=== PATIENT | female | born 1990 | race African-American/Black ===

== ENCOUNTER 2019-04-28 12:38 | Emergency (ER) | payer OTHER ==
[2019-04-28] MEDS ORDERED: Iopamidol 370 76% 100 ML VIAL ONE (13:35)
[2019-04-28 14:34] LABS: #Basophils 0.1 thou/uL (0.0-0.2); #Eosinphils 0.1 thou/uL (0.0-0.7); #Lymphocytes 3.3 thou/uL (1.20-3.40); #Monocytes 0.5 thou/uL (0.11-0.59); #Neutrophils 6.4 thou/uL (1.40-6.50); %Basophils 0.9 % (0.0-1.0); %Eosinophils 0.6 % (0.0-10.0); %Lymphocytes 31.4 % (21.0-51.0); %Monocytes 4.9 % (0.0-10.0); %Neutrophils 62.2 % (42.0-75.0); Hemoglobin 12.9 g/dL (12.0-16.0); Mean Corpuscular HGB CONC 33.3 g/dL (32.0-36.0); Mean Corpuscular Hemoglobin 28.4 pg (27.0-31.0); Mean Corpuscular Volume 85.2 fL (78.0-98.0); Mean Platelet Volume 6.7 fL (7.4-10.4); Platelet Count 377 thou/uL (130-400); RBC Distribution Width 12.9 % (11.5-14.5); Red Blood Cell (RBC) Count 4.53 mill/uL (4.20-5.40); White Blood Cell (WBC) Count 10.3 thou/uL (4.8-10.8)
[2019-04-28 14:56] LABS: ALT (SGPT) 45 U/L (8-55); AST (SGOT) 34 U/L (5-34); Albumin 4.2 g/dL (3.5-5.0); Alkaline Phosphatase 86 U/L (40-110); Anion Gap 14 mmol/L (10-20); BUN (Urea Nitrogen) 8 mg/dL (7.0-18.7); Bilirubin, Total 0.4 mg/dL (0.2-1.2); Calc. Creatinine Clearance 0 mL/min (70-130); Calcium 9.6 mg/dL (7.8-10.44); Carbon Dioxide 25 mmol/L (22-29); Chloride 103 mmol/L (98-107); Estimated GFR-MDRD 80; Globulin 3.4 g/dL (2.4-3.5); Glucose 83 mg/dL (70-105); Lipase 9 U/L (8-78); Potassium 4.2 mmol/L (3.5-5.1); Protein, Total 7.6 g/dL (6.0-8.3); Sodium 138 mmol/L (136-145)
--- NOTE | 2019-04-28 15:41 | ULT ---
EXAM: Pelvic ultrasound HISTORY: Pelvic pain COMPARISON: None TECHNIQUE: Multiple grayscale and color Doppler images were obtained in a transabdominal and transvag inal pelvic ultrasound. Spectral analysis of the Doppler waveforms of the ovaries were performed. FINDINGS: CERVIX: Small nabothian cysts. UTERUS: Normal in size without focal abnormality. ENDOMETRIAL STRIPE: 6 mm. No free fluid is seen in the pelvis. RIGHT OVARY: Normal flow without focal mass. LEFT OVARY: Normal flow without focal mass. IMPRESSION: No significant pelvic abnormality
--- NOTE | 2019-04-28 15:54 | CT ---
EXAM: CT ABDOMEN AND PELVIS HISTORY: Left lower quadrant abdominal pain. Ongoing rectal pain. COMPARISON: None. Procedure: Multiple contiguous axial images were obtained and a CT of the abdomen and pelvis with IV contrast. C oronal reformats were performed. FINDINGS: Lower Chest: within normal limits. Vessels: Normal caliber aorta. Heart: Normal heart size. No significant pericardial fluid. Abdomen: Portal vein:Patent Gallbladder: Multiple gallstones and sludge. No CT evidence of cholecystitis Liver: within normal limits. Pancreas: within normal limits. Spleen: within normal limits. Adrenals: within normal limits. Kidneys: Symmetric enhancement. No obstructive uropathy. Peritoneum: No ascites or free air, no fluid collection. Bowel: Limited evaluation due to the lack of oral contrast administration. No evidence of bowel obstr uction. Ileocecal junction is unremarkable. Normal caliber appendix. Scattered fecal material in a nondistended, nondilated colon. Mesentery and Retroperitoneum: No enlarged mesenteric or retroperitoneal lymph nodes. Abdominal Wall: within normal limits. Pelvis: Reproductive Organs: Reproductive organs are unremarkable. Pelvis: No mass, lymphadenopathy, free air or free fluid. Minimal stranding of the perirectal fat and presacral fat. Bladder: Decompressed, limiting evaluation. Bones: within normal limits. IMPRESSION: 1. Minimal stranding of the perirectal fat and presacral fat. Correlate for prostatitis. 2. Multiple sludge and stones of the gallbladder. HIDA scan or gallbladder ultrasound if clinically w arranted.
== END 2019-04-28 16:29 | disposition home or self-care (01) ==
LOC: ERS 12:38
DX: R10.10 Upper abdominal pain, unspecified (principal)
CPT/HCPCS: 74177; 76856; 80053; 83690; 85025; 96360; Q9967

== ENCOUNTER 2019-11-04 11:16 | Outpatient (CLI) | payer OTHER ==
--- NOTE | 2019-11-04 11:52 | RAD ---
EXAM: Chest 2 views: HISTORY: Fever COMPARISON: None. FINDINGS: There is a normal-sized cardiomediastinal silhouette. There is no evidence of consolidation, mass, or pleural effusion. The bones are unremarkable. IMPRESSION: No evidence of acute cardiopulmonary disease
== END 2019-11-04 11:17 | disposition home or self-care (01) ==
LOC: SCSRAD 11:16
PROVIDERS: ATTEND Internal Medicine
DX: R50.82 Postprocedural fever (principal)
CPT/HCPCS: 71046

== ENCOUNTER 2023-04-16 15:31 | Outpatient (CLI) | payer OTHER | END 2023-04-16 15:32 | disposition home or self-care (01) | LOC: ULT 15:31 | PROVIDERS: ATTEND Family Medicine | DX: M79.605 Pain in left leg (principal) ==